=== PATIENT | male | born 1990 | race Two or more races ===

== ENCOUNTER → 2023-03-19 | Outpatient (CLI) | payer OTHER | END | disposition home or self-care (01) | LOC: RX STUDY 10:41 | DX: K21.00 Gastro-esophageal reflux disease with esophagitis, without bleeding (principal); R19.6 Halitosis; B96.81 Helicobacter pylori [H. pylori] as the cause of diseases classified elsewhere ==

== ENCOUNTER 2023-08-22 09:58 | Emergency (ER) | payer OTHER ==
[~2023-08-22] VITALS: Ht 175.3 cm; Wt 87.5 kg
[2023-08-22] MEDS ORDERED: BACTRIM DS TAB1 EACH PO (10:24)
== END 2023-08-22 11:18 | disposition home or self-care (01) ==
LOC: ER 09:58
DX: L03.012 Cellulitis of left finger (principal); Z88.6 Allergy status to analgesic agent